=== PATIENT | male | born 1975 | race Caucasian/White ===

== ENCOUNTER → 2023-12-30 | Outpatient (CLI) | payer BC ==
--- NOTE | 2024-01-29 08:40 | MR ---
Patient: Alfred Quintero P Ordering Physician: Unknown, Unknown ID: [id number] Phone, Pager: Phone: N/A Pager: N/A : [phone] Age/Gender: 48Y, M Primary Location: N/A Procedure: MR lumbar wo con Study Date: 12/30/2023 7:08:53 PM EXAMINATION TYPE: MR lumbar spine wo con DATE OF EXAM: 01/13/2024 2:37 PM CLINICAL INDICATION: Low back pain into left side COMPARISON: 12/17/2023 TECHNIQUE: Multi planar, multi sequence imaging was performed utilizing: T1-weighted, T2-weighted, a nd turbo inversion recovery imaging of the lumbar spine. IV Contrast: cc . (None if empty) FINDINGS: Alignment: The lumbar vertebral bodies have preserved heights and alignment. Cord: The conus medullaris and the distal spinal cord appear unremarkable with regards to their signa l intensity and morphology. Bones/Discs: Mild degeneration changes throughout the spine with osteophyte formation and facet joint arthropathy Intervertebral disc signal is maintained. Reactive adjoining endplate edema at adjoining endplates of L3-L4, L4-L5 and L5-S1. Inversion recovery edema also surrounding the facet joints wors e at L3-L4 and L4-L5... T12-L1: No evidence of significant spinal canal stenosis or neural foraminal stenosis. L1-L2: Disc bulge and facet joint arthropathy result in mild spinal canal and moderate bilateral neur al foraminal stenosis. L2-L3: Disc bulge and facet joint arthropathy result in moderate to severe spinal canal and moderate to severe bilateral neural foraminal stenosis. L3-L4: Disc bulge and facet joint arthropathy result in severe spinal canal and moderate to severe bi lateral neural foraminal stenosis. L4-L5: Disc bulge and facet joint arthropathy result in moderate to severe spinal canal and moderate to severe bilateral neural foraminal stenosis. L5-S1: The disc has a rounded posterior morphology without significant spinal canal stenosis. Facet j oint arthropathy with moderate right and severe left neural foraminal stenosis. No significant spinal canal or neural foraminal stenosis in the remainder of the visualized levels. Other findings: None. IMPRESSION: 1. Disc bulge with facet joint arthropathy with severe L3-L4 and moderate to severe L2-L3 and L4-5 s kody canal stenosis. 2. Moderate disc degeneration with associated osteoarthritic changes. Narrowing degrees of neural fo raminal stenosis as described above. Neural foraminal stenosis worse at L5-S1 on the left with severe neural foraminal stenosis. 3. There is edema around the facet joints at L3-L4 and L4-L5
== END | disposition home or self-care (01) ==
LOC: RADMRIMAIN 20:15
PROVIDERS: ATTEND Orthopaedic Surgery
DX: M47.816 Spondylosis without myelopathy or radiculopathy, lumbar region (principal); M41.80 Other forms of scoliosis, site unspecified; M99.73 Connective tissue and disc stenosis of intervertebral foramina of lumbar region; M51.36 Other intervertebral disc degeneration, lumbar region; R60.9 Edema, unspecified
CPT/HCPCS: 72148

== ENCOUNTER → 2024-01-22 | Outpatient (CLI) | payer BC ==
--- NOTE | 2024-01-22 20:10 | MR ---
EXAMINATION TYPE: MR cspine/tspine wo con DATE OF EXAM: 01/22/2024 7:22 PM CLINICAL INDICATION: Male, 48 years old with history of M54.14, M54.2; PHH, neck pain, pain down both arms to fingers, left shoulder locked up, mid back pain. COMPARISON: None TECHNIQUE: Multi planar, multi sequence imaging was performed utilizing: T1-weighted, T2-weighted, a nd turbo inversion recovery imaging of the cervical and thoracic spine. MR contrast: IV Contrast: cc , None. FINDINGS: CERVICAL: Alignment: The cervical vertebral bodies have preserved heights. Alignment is within normal limits gi alan patient positioning. Bones: Scattered Modic endplate changes with osteophytes and disc space narrowing. Multilevel degener ative disc disease is noted and most pronounced at the C5-C7 vertebral levels. Cord: The spinal cord is unremarkable with regards to their signal intensity and morphology. Discs: Multilevel disc desiccation is present. C2-C3: No significant disc pathology. The spinal canal is patent. Bilateral facet and uncovertebral joint arthropathy are present with mild bilateral neural foraminal stenosis. C3-C4: No significant disc pathology. The spinal canal is patent. Bilateral facet and uncovertebral joint arthropathy are present with mild bilateral neural foraminal stenosis. C4-C5: No significant disc pathology. The spinal canal is patent. No neural foraminal stenosis. C5-C6: A disc osteophyte complex is present with moderate to severe spinal canal stenosis. With poste rior displacement spinal cord. Spinal cord signal is maintained. Bilateral facet and uncovertebral j oint arthropathy are present with mild to moderate right neural foraminal stenosis. The left neural f oramen is patent. C6-C7: A disc osteophyte complex is present with moderate to severe spinal canal stenosis. With poste rior displacement spinal cord. Spinal cord signal is maintained. Bilateral facet and uncovertebral joint arthropathy are present with moderate to severe bilateral neural foraminal stenosis. C7-T1: No significant disc pathology. The spinal canal is patent. No neural foraminal stenosis. THORACIC: No evidence significant spinal canal or neural foraminal stenosis. Spinal cord is within no rmal limits Other: None. IMPRESSION: 1. C5-C6 at C6-C7 moderate to severe spinal canal stenosis secondary disc osteophyte complex's. Post erior displacement of the spinal cord. Spinal cord signal is maintained. 2. Moderate C5-C6 and C6-C7 disc degeneration with associated osteoarthritic changes with moderate t o severe bilateral neural foraminal stenosis at C6 and C6-C7 and moderate right C5-C6 neural foramina l stenosis. 3. No significant spinal canal or neural foraminal stenosis throughout thoracic spine. Mild degenera tion changes in the thoracic spine.
== END | disposition home or self-care (01) ==
LOC: RADMRIMAIN 18:00
PROVIDERS: ATTEND Orthopaedic Surgery
DX: M54.14 Radiculopathy, thoracic region (principal); M48.02 Spinal stenosis, cervical region; M50.323 Other cervical disc degeneration at C6-C7 level; M47.812 Spondylosis without myelopathy or radiculopathy, cervical region
CPT/HCPCS: 72141; 72146

== ENCOUNTER → 2024-06-22 | Outpatient (CLI) | payer BC ==
[2024-06-22 14:21] VITALS: BP 125/79; PULSE 65; RESP 17
--- NOTE | 2024-06-22 15:47 | P.PAINPG ---
PQRS Measure Charge Sheet Comment: HISTORY OF PRESENT ILLNESS: A 49 yr old male as a referral from Dr Hooper presents today w severe and chronic secondary to radiculopathy, spondylosis and facet arthropathy without myelopathy for evaluation. Pt states pain level is provoked at 8 /10 in intensity, constant, localized in the lumbar spine, predominantly axial, achy in character w occasional shooting pain towards the upper spine and LEs. Pain is provoked by weight bearing activity and PT. Pain is alleviated by physician guided home stretches daily since Apr 2024, medications, topical, heat, manual massage, repositioning and rest . Oswestry axial pain score at 27. PMH: OA, Hyperlipidemia, NIDDM II PSH: Hip Surgery x2, LESIs SH: Daily tobacco use, Occ ETOH use, Cannabis use FH: Non contributory All: See list Meds: See list incl Elrama 5/325mg #90, Robaxin, Naproxen, ASA, Mobic REVIEW OF ORGAN SYSTEMS: CONSTITUTIONAL: No fevers or chills. No recent weight loss. NEUROLOGICAL: + numbness and tingling along the distal extremities. No seizure disorders or headaches. MUSCULOSKELETAL: + pain PSYCHIATRIC: Denies current depression or suicidal thoughts. Physical Examinations : Constitutional : Cooperative , not in acute distress . Neurologic : Cranial nerve II to XII intact. No focal neurological deficits. Psychiatric : alert & oriented x 3. Matching mood & appropriate affect. Judgment & insight intact. Musculoskeletal : Cervical Spine Motor strength in the deltoid and biceps: Normal right side. Normal Left side Motor strength biceps and the wrist extensors: Normal right side . Normal left side Motor strength in the triceps muscle: Normal right side. Normal left side Deep tendon reflexes: Normal at the biceps. Normal at Brachioradialis. Normal at triceps Vertebral body tenderness to deep palpation over Cervical facet loading test: positive bilaterally Spurling test: positive bilaterally Neck distraction test: positive bilaterally Flower sign: positive bilaterally Lumbar spine Motor strength lower extremities ,thigh and legs 5/5 Right side , 5/5 Left side Deep tendon reflexes : Normal Knee Jerk. Normal Ankle Jerk Vertebral body tenderness over Clement Test positive Lumbar facet Loading Test: positive Right / positive Left Range of motion of the lumbar spine Flexion 30 degrees, extension 10 degrees Straight Leg Raise test: Left/ Right positive at degrees Mague test: positive right / positive left. Severe tenderness over the Sacroiliac joint on the Right / Left sides Gaenslen test: positive bilaterally Seated flexion test: positive bilaterally. Sacral spine : Severe tenderness over the Sacroiliac joint: right side / left side Range of motion: Flexion of the lumbar spine <60 degrees Range of motion: Extension of the lumbar spine <20 degrees Gaenslen's Test positive Mague test: positive right side / left side Thigh Thrust Test Sacral Thrust Test Imaging: MRI non contrast lumbar spine from 01/13/24 reviewed MRI non contrast cervical spine 01/22/24 reviewed MRI non contrast thoracic spine 01/22/24 reviewed Assessment/ Plan : L2-L3/ L4-L5 spinal stenosis, lumbar facet arthropathy, C5-C7 spinal stenosis w radiculopathy Recommendation of short course of Elrama 10/325mg #18 NR. Advised to discontinue Cannabis and ETOH while taking Elrama. Use, side effects, adverse reactions, safe storage discussed. Pt acknowledged understanding. Will follow up w Dr Hooper to explore additional treatment options. All questions answered. I have spent greater than 30 minutes on patient care today. Dr Flower was available by phone for the evaluation of this patient. The time was used to review the medical records including relevant urine studies and Prescription history (MAPs), review of the available imaging, evaluation and examination of the patient, coordination of care with the medical staff and if applicable referring physicians, as well as creation of the medical record - Pain Location Lower Back Non-Pharmacological Interventions: Ice Controlled Substance Measures - Controlled Substance Measures Is patient prescribed a controlled substance at discharge?: Yes
== END ==
LOC: PNWHC3 13:41
PROVIDERS: ATTEND Specialist
DX: M48.02 Spinal stenosis, cervical region (principal); M48.061 Spinal stenosis, lumbar region without neurogenic claudication; M47.26 Other spondylosis with radiculopathy, lumbar region; Z88.0 Allergy status to penicillin
CPT/HCPCS: 99202